=== PATIENT | male | born 1950 | race African-American/Black ===

== ENCOUNTER 2018-07-02 21:30 | Inpatient (IN) | payer MEDICARE ==
[~2018-07-02] VITALS: Ht 172.7 cm; Wt 58.2 kg
--- NOTE | ~2018-07-02 | EC ---
PATIENT:MARCEL HONG DATE OF SERVICE: 07/02/18 SEX: M MEDICAL RECORD: [id number] DATE OF : 52 LOCATION:D.M2 D.212 AGE OF PATIENT: 68 ADMISSION DATE: 07/02/18 REFERRING PHYSICIAN: INTERPRETING PHYSICIAN: ALFREDA MARQUEZ MD ECHOCARDIOGRAM REPORT ECHO CHARGES 5 ECHO LIMITED Date: 07/03 CLINICAL DIAGNOSIS: CHEST PAIN ECHOCARDIOGRAPHIC MEASUREMENTS (adult normal given) AC root (d.<3.7cm) 5.0 cm LV Septum d (<1.2 cm> 1.5 cm Valve Excursion 2.1 cm LV Septum (systole) 1.9 cm Left Atria (s.<4.0cm> 3.4 cm LVPW d(<1.2cm) 1.7 cm RV (d.<2.3cm) 3.7 cm LVPW (sytole) 1.9 cm LV diastole(<5.6CM) 3.7 cm MV E-F(>70mm/sec) cm LV systole 2.3 cm LVOT Diameter cm MV exc.(>10mm) cm Est.ejection fraction (50-75%) % DOPPLER: LVIT cm/sec A cm/sec E cm/sec LA cm/sec RVSP 25 mmHg LVOT cm/sec AOP1/2T m/s Asc. Ao cm/sec RVOT 114 cm/sec RA cm/sec PA 128 cm/sec AV Gradient Peak mmHg AV Mean mmHg AV Area cm MV Gradient Peak mmHg MV Mean mmHg MV Area cm COMMENTS: Biblical Studies Professor: Berta STRAUSS Options Trader: 3 Dr. Zimmerman TAPE# PACS Pericardial Effusion Y DATE OF SERVICE: Adequate 2D echo, color flow, spectral Doppler, M-mode LVH present. LV internal dimensions are normal. Wall motion is normal. EF is greater than or equal to 55%. Aortic valve sclerosis without stenosis by Doppler interrogation. Left atrium is normal at 3.4 cm. Mitral valve shows no prolapse. Mild MR. Right sided chambers are normal. Trace TR. TRANSINT:[id number] Voice Confirmation ID: [id number] DOCUMENT ID: [id number] ECHOCARDIOGRAM REPORT [id number] MARCEL HONG ALFREDA MARQUEZ MD at 1117 CC: [id number] DICTATION DATE: 07/03/18 1642 PERSONNEL QUALITY ASSURANCE AUDITOR: 07/04/18 0109 ADM IN [facility] [address] [facility] [place] [address]
--- NOTE | ~2018-07-02 | OP ---
PATIENT NAME: MARCEL HONG MEDICAL RECORD: [id number] :52 LOCATION:D.M2 D.2120 ADMISSION DATE:07/02/18 SURGEON: ALFREDA MARQUEZ MD DATE OF OPERATION: 07/05/2018 PROCEDURE: Left heart catheterization, selective coronary angiography, post-intervention to the LAD, right radial artery approach. CATHETERS: A radial sheath. Pickens catheter. We proceed with a JAZZ SINGER stenting to the LAD. FINDINGS: Left ventriculography in 30-degree BAUMAN view shows mild anterior anteroapical hypokinesis, LV function preserved at 50%. CORONARY ANATOMY: LEFT MAIN: Left main is free of disease. LAD: Has a fairly discrete 80% stenosis at the takeoff of the first septal. CIRCUMFLEX: Small vessel, free of disease. RIGHT CORONARY ARTERY: Luminal irregularities, otherwise free of disease. IMPRESSION: Infarct related artery appears to LAD. PLAN: Intervention momentarily. DESCRIPTION OF PROCEDURE: Using the indwelling radial sheath, EBU 3.5 guide catheter provided excellent guide catheter support followed by a 300 cm [place] XT wire was placed across the tightly occluded LAD to this portion of the vessel. Stent deployed was a 3.5 x 15 mm Integrity nondrug-eluting stent up to 14 atmospheres for 45 seconds. Final angiography shows excellent resolution of 80% stenosis, no significant residual. ANT flow was 3 throughout the procedure. Integrilin was used during the case. Sheath closed with TR band. TRANSINT:[id number] Voice Confirmation ID: [id number] DOCUMENT ID: [id number] ALFREDA MARQUEZ MD at 1254 CC: [id number] DICTATION DATE: 07/05/18 1007 DISPATCHER REFINERY: 07/05/18 1155 DIS IN 07/06/18 [facility] [address] [place] [address]
--- NOTE | ~2018-07-02 | CN ---
PATIENT NAME:MARCEL HONG MEDICAL RECORD: [id number] : 52 LOCATION:D. D.2120 ADMIT DATE: 07/02/18 ACCOUNT: [id number] CONSULTING PHYSICIAN: ALFREDA MARQUEZ MD REFERRING PHYSICIAN: SOLO TSANG MD DATE OF CONSULTATION: 07/03/2018 HISTORY OF PRESENT ILLNESS: A 68-year-old gentleman with no known history of coronary artery disease, has a history of obstructive pulmonary disease, on home O2, presented to outside hospital with increasing dyspnea, found to have a right lower lobe pneumonia. Also reports intermittent wheezing. Has been having intermittent chest pain with 2 components, one pleurtic, one more anginal. Cardiac enzymes consistent with NSTEMI. Given underlying lung disease, difficult to tell if this is type 1 or 2. We are asked to see him concerning his cardiovascular status. PAST MEDICAL HISTORY: Includes, 1. History of hyperlipidemia. 2. Seizure disorder. 3. Cerebrovascular disease status post CVA. 4. Obstructive pulmonary disease. ALLERGIES: None known. MEDICATIONS: Include Lipitor 80 mg p.o. daily, Plavix 75 every day, Keppra 500 b.i.d., Remeron 30 mg at bedtime, aspirin 81 every day. SOCIAL HISTORY: Lives in the [place] area. Smokes a pack a day, drinks around 12-pack. No set exercise program. REVIEW OF SYSTEMS: The patient reports easy bruising but reports no swollen glands. The patient reports no fever, no night sweats, no significant weight gain, no significant weight loss. No significant exercise tolerance. The patient reports no dry eyes, no irritation, no vision change. Patient reports no difficulty hearing and no ear pain. Patient reports no frequent nose bleeds or nose and sinus problems. Patient reports on arm pain on exertion. No shortness of breath while lying down. No history of heart murmur. Patient reports no cough, no wheezing or coughing up blood. Patient reports no abdominal pain, no vomiting. Normal appetite. No diarrhea and not vomiting blood. No nausea and no constipation. Patient reports no incontinence. No difficulty urinating. No hematuria. No increased frequency. Patient reports no muscle aches. No weakness, no arthralgias, no back pain. No swelling of the extremities. Patient reports no abnormal mole, no jaundice, no rashes. Reports no loss of consciousness. No weakness and no numbness. No seizures, dizziness, or headaches. The patient reports no depression, no sleep disturbance, feeling safe in a relationship and no alcohol abuse. Patient reports on fatigue. Reports no runny nose or sinus pressure. No itching, no hives, and no frequent sneezing. PHYSICAL EXAMINATION: GENERAL: Pleasant gentleman in no acute distress. VITAL SIGNS: Blood pressure 133/75, pulse 78 and regular. HEENT: Normocephalic, atraumatic. NECK: No JVD or bruit. HEART: Regular. CONSULT REPORT [id number] MARCEL HONG LUNGS: Lung johns clear. ABDOMEN: Soft, nontender. EXTREMITIES: Pulses 2+. No edema. DIAGNOSTIC DATA: ECG shows nonspecific ST-T changes. IMPRESSION: Obstructive pulmonary disease, improving pneumonitis. Multiple risk factors for coronary disease. This may be demand ischemia, but given underlying risk factors and history, we will plan for diagnostic angiography in near future. Further recommendations based on above. TRANSINT:[id number] Voice Confirmation ID: [id number] DOCUMENT ID: [id number] ALFREDA MARQUEZ MD at 1117 CC: [id number] DICTATION DATE: 07/03/18 1342 CUSTOM GRINDER: 07/03/18 1433 ADM IN [facility] [place] [id number] [place] [address]
--- NOTE | ~2018-07-02 | HEMODYNAMI ---
PATIENT:MARCEL HONG MEDICAL RECORD: [id number] : 52 [facility]ATION[id number] ADMISSION DATE: 07/02/18 Generatedon:07/05/201810:06 Patient name: MARCEL HONG Patient #: [id number] SSN: : 1950 Date of study: 07/05/2018 Page: Of Hemodynamic Procedure Report Patient Data Patient Demographics Procedure consent was obtained First Name: MARCEL Gender: Male Last Name: GELY : 1950 Patient #: [id number] Age: 68 year(s) Race: Black Additional ID: [id number] Contact details [address]: [address] [place] [address] State: [place] City: [place] Zip code: [address] Admission Admission Data Admission Date: 07/02/2018 Admission Time: 21:30 Room #: 2120 Height (in.): 68 BSA: 1.69 (m2) Height (cm.): 172.72 BMI: 19.44 (kg/m2) Weight (lbs.): 127.87 Weight (kg.): 58 Lab Results Lab Result Date: 07/05/2018 Lab Result Time: 0:00 Biochemistry Name Units Result Min Max BUN mg/dl 8 --(*---)-- 7 18 Creatinine mg/dl 0.7 --(*---)-- 0.6 1.3 CBC Name Units Result Min Max Hemoglobin g/dl 10.6 *-(----)-- 13.5 17.5 Procedure Procedure Types Cath Procedure Diagnostic Procedure LHC LHC w/Coronaries Sedation Charges Moderate Sedation up to 15 minutes PCI Procedure Coronary Stent Coronary Stent Initial Procedure Description Procedure Date Procedure Date: 07/05/2018 Procedure Start Time: 9:40 Procedure End Time: 10:01 Procedure Staff Name Function Janusz Liz MD Performing Physician Shanti Kumar RT Monitor Shanti Kumar RT Scrub Jake Carlton RN Nurse Procedure Data Cath Procedure Fluoroscopy Diagnostic fluoroscopy Total fluoroscopy Time: 5.9 time: 5.9 min min Diagnostic fluoroscopy Total fluoroscopy dose: dose: 133.11 mGy 133.11 mGy Contrast Material Contrast Material Type Amount (ml) Isovue 300 112 Entry Location Entry Primary Successful Side Size Upsize Upsize Entry Closure Mae ccessful Closure Location (Fr) 1 (Fr) 2 (Fr) Remarks Device Remarks Radial Right 6 Fr Mechanical artery Short Compression Estimated blood loss: 5 ml Diagnostic catheters Device Type Used For End Catheter Placement DIAGNOSTIC Kyburz 110cm 5 Multi-vessel Fr catheter ([id number]) Angiography Procedure Complications No complications Procedure Medications Medication Administration Route Dosage Oxygen etCO2 Nasal cannula 2 l/min Heparin Flush Bag added to field 2 bags (1000units/500ml NS) Radial Cocktail added to field 1 syringe (Verapomil 2mg/Nitro 400mcg/Heparin 1500units) Fentanyl I.V. 50 mcg Versed I.V. 1 mg Fentanyl I.V. 50 mcg Versed I.V. 1 mg Radial Cocktail I.A. 1 syringe (Verapomil 2mg/Nitro 400mcg/Heparin 1500units) Heparin Bolus I.V. 4000 units Integrilin (Bolus I.V. 5 ml 2mg/ml) Integrilin (Bolus wasted 5 ml 2mg/ml) Hemodynamics Rest BSA: 1.69 (m2) HGB: 10.6 (g/dl) O2 Consumption: Estimated: 202.71 (ml/min) O2 Co nsumption indexed: Estimated:119.95 (ml/min/m) Heart Rate: 80 (bpm) Pressure Samples Time Site Value (mmHg) Purpose Heart Use Rate(bpm) 9:50 LV 125/2,9 Snapshot 85 Gradients Valve Time Site Site Mean SEP/DFP Peak To Heart Use 1 2 (mmHg) (sec/min) Peak Rate (mmHg) (bpm) Aortic 9:50 LV AO 102 Snapshots Pre Cath Intra NCS Post Cath Vital Signs Time Heart Resp SPO2 etCO2 NIBP (mmHg) Rhythm Pain Sedation Rate (ipm) (%) (mmHg) Status Level (bpm) 9:21:39 79 16 96 0 145/82(111) NSR 0 (11) 10(A) , No pain 9:25:51 79 17 93 0 132/82(109) NSR 0 (11) 10(A) , No pain 9:30:01 79 16 98 52 123/73(93) NSR 0 (11) 10(A) , No pain 9:34:09 77 16 98 40.7 119/71(102) NSR 0 (11) 10(A) , No pain 9:38:17 76 16 98 36.9 122/68(102) NSR 0 (11) 10(A) , No pain 9:42:25 78 17 98 0 112/66(87) NSR 0 (11) 10(A) , No pain 9:46:30 81 16 97 50.5 103/61(82) NSR 0 (11) 10(A) , No pain 9:50:38 77 16 97 27.9 120/50(101) NSR 0 (11) 10(A) , No pain 9:54:50 75 16 97 15 99/52(79) NSR 0 (11) 10(A) , No pain 9:58:56 77 17 98 40.7 101/54(81) NSR 0 (11) 10(A) , No pain 10:05:56 52 No Cuff NSR 0 (11) 10(A) , No pain Medications Time Medication Route Dose Verified Delivered Reason Not es Effectiveness by by 9:20:57 Oxygen etCO2 2 l/min Janusz Joseph Per physician Nasal [facility] Akshat Carlton RN cannula 9:21:06 Heparin Flush added 2 bags Janusz Joseph used for Bag to [facility] Akshat Carlton kettle chipper (1000units/500ml field DAVIDSON NS) 9:25:33 Radial Cocktail added 1 Janusz Joseph used for (Verapomil to syringe [facility] Akshat Carlton kettle chipper 2mg/Nitro field DAVIDSON 400mcg/Heparin 1500units) 9:30:00 Fentanyl I.V. 50 mcg Janusz Joseph for sedation [facility] Akshat Carlton RN, MD 9:30:06 Versed I.V. 1 mg Janusz Joseph for sedation [facility] Akshat Carlton RN, MD 9:39:55 Fentanyl I.V. 50 mcg Janusz Joseph for sedation [facility] Akshat Carlton RN, MD 9:40:00 Versed I.V. 1 mg Janusz Joseph for sedation [facility] Akshat Carlton RN, MD 9:44:48 Radial Cocktail I.A. 1 Janusz Boudreaux for (Verapomil syringe Shalonda [facility] Oden vasodilation 2mg/Omari DAVIDSON MD 400mcg/Heparin 1500units) 9:54:00 Heparin Bolus I.V. 4000 Janusz Joseph for units [facility] Akshat Carlton RN anticoagulation 9:54:10 Integrilin I.V. 5 ml Janusz Joseph Per physician (Bolus 2mg/ml) [facility] Akshat Carlton RN, MD 10:04:15 Integrilin wasted 5 ml Janusz Joseph Per physician (Bolus 2mg/ml) [facility] Akshat Carlton RN, MD Procedure Log Time Note 9:00:45 Jake Carlton RN sent for patient. Start room use. 9:02:47 Lab Result : BUN 8 mg/dl 9::47 Lab Result : Creatinine 0.7 mg/dl 9::47 Lab Result : Hemoglobin 10.6 g/dl 9:03:05 Patient Weight : 127.87 lbs 9:03:29 Patient Height : 68 inches 9:03:49 Diagnostic Cath Status : Urgent 9:20:31 Vital chart was started 9:20:52 Time tracking: Regular hours (M-F 7:00 - 5:00) 9:20:57 Oxygen 2 l/min etCO2 Nasal cannula was administered by Jake Carlton RN; Per physician; 9:20:57 Plan of Care:Hemodynamics will remain stable., Cardiac rhythm will remain stable., Comfort level will be maintained., Respiratory function will remain adequate., Patient/ family verbilizes understanding of procedure., Procedure tolerated without complication., Recovers from procedure without complications.. 9:21:06 Heparin Flush Bag (1000units/500ml NS) 2 bags added to field was administered by Jake Carlton RN; used for procedure; 9:21:11 Patient received from Med II to CCL 3 Alert and oriented. Tansferred to table in Supine position. 9:21:12 Warm blankets applied, and enda hugger turned on for patient comfort. 9:21:13 Correct patient and procedure confirmed by team. 9:21:14 Signed procedure consent form obtained from patient. 9:21:15 ECG and BP/O2 sat monitors applied to patient. 9:21:19 Baseline sample Acquired. 9:21:22 Rhythm: sinus rhythm 9:21:24 Full Disclosure recording started 9:21:29 H&P Date Dictated: 07/05/2018 New H&P dictated by physician.. 9:21:30 Pre-procedure instructions explained to patient. 9:21:31 Pre-op teaching completed and patient verbalized understanding. 9:21:33 Family in waiting room. 9:21:34 Patient NPO since Midnight. 9:21:38 Is the patient allergic to Iodine/contrast media? No. 9:21:39 Was the patient premedicated? No 9:21:41 Is patient on blood thinner?Yes 9:21:42 ACC The patient was administered the following blood thiners within the last 24 hours: ACCPlavix 9:21:45 Patient diabetic? No. 9:21:48 Previous problem with sedation/anesthesia? No ? 9:21:51 Snore? Yes 9:21:52 Sleep apnea? No 9:21:53 Deviated septum? No 9:21:53 Opens mouth fully? Yes 9:21:54 Sticks out tongue? Yes 9:21:58 Airway obstruction? Yes copd 9:22:10 Dentures? Yes loose teeth 9:22:14 Pre procedure: right dorsailis pedis pulse 2+ Normal; easily identifiable; not easily obliterated 9:22:17 Pre procedure: left dorsailis pedis pulse 2+ Normal; easily identifiable; not easily obliterated 9:22:19 Patient pain scale 0/10 ?. 9:22:26 IV patent on arrival in left forearm with 0.9% NaCl at [facility]. 9:22:28 Lab results completed and on chart. 9:22:33 Right Radial & Right Groin area was prepped with chlora-prep and draped in sterile fashion 9:22:34 Alarms reviewed by R. N. 9:22:35 Sharps counted by scrub and verified by R.N. 9::36 Sharps counted by scrub and verified by R.N. 9:25:33 Radial Cocktail (Verapomil 2mg/Nitro 400mcg/Heparin 1500units) 1 syringe added to field was administered by Jake Carlton RN; used for procedure; 9:28:06 Physician arrived 9:28:06 --------ALL STOP TIME OUT------ 9:28:07 Final Timeout: patient, procedure, and site verified with staff and physician. All members of the team are in agreement. 9:28:08 Right Radial & Right Groin site verified by team. 9:28:11 Physical assessment completed. ASA score P 2 - A patient with mild systemic disease as per Janusz Liz MD. 9:28:20 Sedation plan: IV Moderate Sedation Medication:Versed, Fentanyl 9:28:23 Use device set Radial Dx or PCI 9:28:25 ACIST Syringe (06414) opened to sterile field. 9:28:25 Medline Cath Pack ([id number]) opened to sterile field. 9:28:25 Bag Decanter (2002S) opened to sterile field. 9:28:26 DIAGNOSTIC WIRE .035 260cm J wire (288208) opened to sterile field. 9:28:26 ACIST Hand Control (05328) opened to sterile field. 9:28:27 ACIST Manifold (05392) opened to sterile field. 9:28:27 Tegaderm 4 x 4 (1626W) opened to sterile field. 9:28:28 MBrace Wrist Support ([id number]) opened to sterile field. 9:28:29 SHEATH 6Fr Prelude Radial ([id number]) opened to sterile field. 9:30:00 Fentanyl 50 mcg I.V. was administered by Jake Carlton RN; for sedation; 9:30:06 Versed 1 mg I.V. was administered by Jake Carlton RN; for sedation; 9:32:16 Zero performed for pressure channel P1 9:39:55 Fentanyl 50 mcg I.V. was administered by Jake Carlton RN; for sedation; 9:40:00 Versed 1 mg I.V. was administered by Jake Carlton RN; for sedation; 9:40:05 Procedure started. 9:40:08 Local anesthetic to right radial artery with Lidocaine 2% by Janusz Liz MD.INITIAL ACCESS ONLY 9:40:16 A 6 Fr Short sheath was inserted into the Right Radial artery 9:43:27 A DIAGNOSTIC Kyburz 110cm 5 Fr catheter ([id number]) was advanced over the wire and used for Multi-vessel Angiography. 9:43:35 Baseline sample Acquired. 9:44:48 Radial Cocktail (Verapomil 2mg/Nitro 400mcg/Heparin 1500units) 1 syringe I.A. was administered by Janusz Liz MD; for vasodilation; 9:47:45 RCA angiography performed. 9:47:49 Injector settings: Ml/sec: 3, Volume: 6, 9:49:12 LCA angiography performed. 9:49:15 Injector settings: Ml/sec: 3, Volume: 6, 9:50:33 LV hemodynamics recorded. 9:50:34 LV gram done using BAUMAN 9:50:37 Injector settings: Ml/sec: 5, Volume: 15, 9:50:52 EF : 55 % 9:51:05 Catheter removed. 9:51:15 Proceeding to intervention. 9:51:37 WHISPER 300cm guide wire ([id number]) opened to sterile field. 9:52:03 INFLATOR Merit BasixCompak (IX1538) opened to sterile field. 9:52:12 6 Fr ebu 3.5 guide catheter was inserted over the wire 9:53:26 whisper wire advanced. 9:54:00 Heparin Bolus 4000 units I.V. was administered by Jake Carlton RN; for anticoagulation; 9:54:10 Integrilin (Bolus 2mg/ml) 5 ml I.V. was administered by Jake Carlton RN; Per physician; 9:56:08 Wire advanced across lesion. 9:58:20 Place stent Inflation Number: 1 A INTEGRITY OTW 3.5 X 15 stent ([id number]) was prepped and advanced across the Mid LAD. The stent was deployed at 14 SHERON for 0:30 (min:sec). 9:59:10 TR BAND Standard ([id number]) opened to sterile field. 9:59:16 Stent catheter was removed intact over wire. 9:59:18 Wire removed. 9:59:18 Guide catheter removed. 9:59:27 Sheath removed intact; hemostasis achieved with Mechanical Compression to the Right Radial artery. 9:59:29 Procedure ended.(Physican Out) 10:00:04 Fluoroscopy time 05.90 minutes. 10:00:22 Fluoroscopy dose: 133.11 mGy 10:00:22 Flurop Dose total: 133.11 10:00:27 Contrast amount:Isovue 300 112ml. 10:00:30 Sharps counted by scrub and verified by R.N. 10:00:32 TR band inflated with 10cc of air. 10:00:33 Insertion/operative site no bleeding no hematoma. 10:00:37 Post right radial artery:stable 10:00:39 Post Procedure Pulses reassessed and unchanged 10:00:42 Post procedure rhythm: unchanged. 10:00:45 Estimated blood loss: 5 ml 10:00:46 Post procedure instruction explained to patient.Patient verbalizes understanding. 10:00:46 Patient needs reinforcement of post procedure teaching. 10:01:04 Procedure type changed to Cath procedure, Diagnostic procedure, LHC, LHC w/Coronaries, Sedation Charges, Moderate Sedation up to 15 minutes, PCI procedure, Coronary Stent, Coronary Stent Initial 10:01:06 Procedure and supply charges have been captured, reviewed, submitted and are correct. 10:01:10 Procedure Complication : No complications 10:01:13 Vital chart was stopped 10:01:13 See physician's report for complete and final results. 10:01:17 Report given to Med II. 10:01:19 Patient transfered to Med II with Stretcher. 10:01:21 Procedure ended. 10:01:21 Full Disclosure recording stopped 10:01:31 ACC-PCI Only Patient was given prescriptions, or instructed by Janusz Liz MD to start/continue the following medications upon discharge: Plavix 10:01:32 End room use (Document Last) 10:04:15 Integrilin (Bolus 2mg/ml) 5 ml wasted was administered by Jake Carlton RN; Per physician; Intervention Summary Intervention Notes Time ActionType Lesion and Equipment Action# Pressure Duration Attributes Used 9:58:20 Place stent Mid LAD INTEGRITY 1 14 00:30 OTW 3.5 X 15 stent ([id number]) Device Usage Item Name Manufacture Quantity Catalog Number Hospital Part Current M inimal Lot# / Charge Number Stock Stock Serial# Code ACIST Syringe Acist 1 39367 991523 549802 [id number] 2 0 (55958) Medical Systems Inc Medline Cath Cardinal 1 [id number] 440985 19489 048571 5 Pack Health ([id number]) Bag Decanter Microtek 1 297039 41638 769774 5 () Medical Inc. DIAGNOSTIC WIRE [facility] 1 838733 186011 578341 622846 3 0 .035 260cm J wire (146261) ACIST Hand Acist 1 30383 674529 316348 021629 5 Control (93634) Medical Systems Inc ACIST Manifold Acist 1 89358 464549 362791 677310 5 (91295) Medical Systems Inc Tegaderm 4 x 4 3M 1 1626W 666957 130293 111202 5 (1626W) MBrace Wrist Advanced 1 140-0250-00 840189 84500 593984 5 Support Vascular ([id number]) Dynamics SHEATH 6Fr Merit 1 [id number] 178650 064525 537232 5 Prelude Radial Medical ([id number]) DIAGNOSTIC Terumo 1 405013 243774 845481 077945 5 Kyburz 110cm 5 Fr catheter (553901) WHISPER 300cm Rhodes 1 [id number] 579671 198807 333235 5 guide wire Vascular ([id number]) INFLATOR Merit Merit 1 [id number] 829796 871015 139640 1 5 BasixZevez CorporationndTier 1 Performance Medical ([id number]) INTEGRITY OTW Medtronic 1 [id number] 986519 823931 8 [id number] 3.5 X 15 stent ([id number]) TR BAND Terumo 1 [id number] 431753 679192 624780 4 0 Standard ([id number]) Signature Audit [place] Stage Time Signature Unsigned Intra-Procedure 07/05/2018 Shanti Kumar 10:06:31 AM RT(R) Signatures Monitor : Shanti Kumar RT Signature : Date : Time : [place] [id number] [facility] [place] [address]
[2018-07-02] MEDS ORDERED: ASPIRIN325 MG PO (22:47)
[2018-07-02] MEDS ORDERED: LIPITOR80 MG PO (22:49)
[2018-07-02] MEDS ORDERED: REMERON30 MG PO (22:50)
[2018-07-02] MEDS ORDERED: KEPPRA500 MG PO (22:50)
[2018-07-02] MEDS ORDERED: PLAVIX75 MG PO (22:50)
[2018-07-02] MEDS ORDERED: VITAMIN D31000 UNIT PO (22:51)
[2018-07-02 23:20] VITALS: BP 99/60; BMI 19.5
[2018-07-03 00:45] LABS: CKMB 0.6 U/L (0.0-3.6); CREATINE KINASE 29 UL (21-232)
[2018-07-03 00:47] LABS: TROPONIN-I 0.084 ng/mL (0.000-0.060)
[2018-07-03 04:00] VITALS: BP 133/75
[2018-07-03 05:36] LABS: BASOPHILS 0.1 % (0-2); EOSINOPHILS 0.1 % (0-7); HEMOGLOBIN 10.7 g/dL (13.5-17.5); IMMATURE GRANULOCYTES 0.1 % (0-5); LYMPHOCYTES 21.2 % (15-50); MCH 28.7 pg (26.0-34.0); MCHC 32.4 g/dL (31.0-37.0); MCV 88.5 fL (80.0-100.0); MEAN PLATELET VOLUME 9.9 fL (7.4-10.4); MONOCYTES 18.3 % (2-11); NEUTROPHILS 60.2 % (40-80); PLATELET COUNT 239 10x3/uL (130-400); RBC 3.73 10x6/uL (4.20-6.10); RDW 15.5 % (11.5-14.5); WBC 7.2 10x3/uL (4.8-10.8)
[2018-07-03 06:37] LABS: ALKALINE PHOSPHATASE 75 U/L (46-116); ALT (SGPT) 12 U/L (10-68); CALC OSMOLALITY 276 mosm/kg (275-300); CALCIUM 8.9 mg/dL (8.5-10.1); CARBON DIOXIDE 36.8 mmol/L (21.0-32.0); CHLORIDE - SERUM 100 mmol/L (98-107); CKMB 0.7 U/L (0.0-3.6); CREATINE KINASE 25 UL (21-232); CREATININE - SERUM 0.7 mg/dL (0.6-1.3); POTASSIUM - SERUM 4.5 mmol/L (3.5-5.1); PRO BNP 3663 pg/mL (0-125); PROTEIN - SERUM 7.6 g/dL (6.4-8.2); SODIUM 139 mmol/L (136-145); TROPONIN-I 0.056 ng/mL (0.000-0.060); UREA NITROGEN 16 mg/dL (7-18); eGFR NON AFRICAN AMERICAN > 90 mL/min (90-120)
[2018-07-03 06:40] LABS: GLUCOSE 63 mg/dL (74-106)
[2018-07-03 07:44] VITALS: BP 137/78
[2018-07-03 11:21] LABS: CKMB 0.8 U/L (0.0-3.6); CREATINE KINASE 34 UL (21-232); TROPONIN-I 0.028 ng/mL (0.000-0.060)
[2018-07-03 11:23] VITALS: BP 118/71
[2018-07-03 13:02] VITALS: Ht 172.7 cm; Wt 58.2 kg
[2018-07-03 14:38] LABS: % SATURATION 40 % (15-55); IRON 68 ug/dl (35-150); TOTAL IRON BIND CAPACITY 168 ug/dl (260-445); UNSAT IRON BIND CAPACITY 100 ug/dl (150-375)
[2018-07-03 14:56] VITALS: BP 143/81
[2018-07-03 15:50] LABS: APPEARANCE CLEAR (CLEAR); BILIRUBIN NEGATIVE (NEGATIVE); COLOR YELLOW (YELLOW); GLUCOSE NEGATIVE (NEGATIVE); KETONE SMALL mg/dL (NEGATIVE); NITRITE NEGATIVE (NEGATIVE); PROTEIN NEGATIVE (NEGATIVE); SPECIFIC GRAVITY 1.015 (1.005-1.020); UROBILINOGEN NORMAL (NORMAL)
[2018-07-03 15:52] LABS: RED CELLS - URINE 0-5 /hpf (0-5); WHITE CELLS - URINE 0-5 /hpf (0-5)
[2018-07-03 15:53] LABS: BACTERIA FEW /hpf (NONE SEEN)
[2018-07-03 20:30] VITALS: BP 113/71
[2018-07-04 05:52] LABS: BASOPHILS 0.2 % (0-2); EOSINOPHILS 0.5 % (0-7); HEMATOCRIT 34.1 % (42.0-54.0); IMMATURE GRANULOCYTES 0.5 % (0-5); LYMPHOCYTES 24.6 % (15-50); MCH 28.5 pg (26.0-34.0); MCHC 32.3 g/dL (31.0-37.0); MCV 88.3 fL (80.0-100.0); MEAN PLATELET VOLUME 9.8 fL (7.4-10.4); MONOCYTES 16.1 % (2-11); NEUTROPHILS 58.1 % (40-80); PLATELET COUNT 245 10x3/uL (130-400); RBC 3.86 10x6/uL (4.20-6.10); RDW 15.1 % (11.5-14.5)
[2018-07-04 06:07] LABS: CALCIUM 8.8 mg/dL (8.5-10.1); CARBON DIOXIDE 34.9 mmol/L (21.0-32.0); CHLORIDE - SERUM 100 mmol/L (98-107); CREATININE - SERUM 0.7 mg/dL (0.6-1.3); SODIUM 138 mmol/L (136-145); eGFR NON AFRICAN AMERICAN > 90 mL/min (90-120)
[2018-07-04 06:09] LABS: CALC OSMOLALITY 272 mosm/kg (275-300); GLUCOSE 70 mg/dL (74-106); POTASSIUM - SERUM 3.8 mmol/L (3.5-5.1); UREA NITROGEN 10 mg/dL (7-18)
[2018-07-04 07:55] VITALS: BP 104/64
[2018-07-04 11:33] VITALS: BP 120/64
[2018-07-04 12:02] VITALS: BP 120/64
[2018-07-04 15:30] VITALS: BP 106/64
[2018-07-04 21:07] VITALS: BP 124/52
[2018-07-05] VITALS (9 sets, daily range): BP systolic 93–126; BP diastolic 49–72
[2018-07-05 06:22] LABS: BASOPHILS 0 % (0-2); EOSINOPHILS 0.5 % (0-7); HEMATOCRIT 32.4 % (42.0-54.0); HEMOGLOBIN 10.6 g/dL (13.5-17.5); LYMPHOCYTES 21.9 % (15-50); MCH 28.8 pg (26.0-34.0); MCHC 32.7 g/dL (31.0-37.0); MEAN PLATELET VOLUME 9.9 fL (7.4-10.4); MONOCYTES 15.5 % (2-11); NEUTROPHILS 62.1 % (40-80); PLATELET COUNT 267 10x3/uL (130-400); RBC 3.68 10x6/uL (4.20-6.10); RDW 15.1 % (11.5-14.5); WBC 5.8 10x3/uL (4.8-10.8)
[2018-07-05 06:38] LABS: CALC OSMOLALITY 279 mosm/kg (275-300); CALCIUM 8.9 mg/dL (8.5-10.1); CARBON DIOXIDE 38.7 mmol/L (21.0-32.0); CHLORIDE - SERUM 100 mmol/L (98-107); CREATININE - SERUM 0.7 mg/dL (0.6-1.3); GLUCOSE 74 mg/dL (74-106); SODIUM 142 mmol/L (136-145); UREA NITROGEN 8 mg/dL (7-18); eGFR NON AFRICAN AMERICAN > 90 mL/min (90-120)
[2018-07-05 06:40] LABS: POTASSIUM - SERUM 3.2 mmol/L (3.5-5.1)
[2018-07-06 04:00] VITALS: BP 114/69
[2018-07-06 05:20] LABS: BASOPHILS 0 % (0-2); EOSINOPHILS 0.9 % (0-7); HEMATOCRIT 30.2 % (42.0-54.0); HEMOGLOBIN 9.8 g/dL (13.5-17.5); LYMPHOCYTES 23.9 % (15-50); MCH 28.3 pg (26.0-34.0); MCHC 32.5 g/dL (31.0-37.0); MCV 87.3 fL (80.0-100.0); MEAN PLATELET VOLUME 9.7 fL (7.4-10.4); MONOCYTES 18.5 % (2-11); NEUTROPHILS 56.7 % (40-80); PLATELET COUNT 262 10x3/uL (130-400); RBC 3.46 10x6/uL (4.20-6.10); RDW 15.2 % (11.5-14.5); WBC 4.7 10x3/uL (4.8-10.8)
[2018-07-06 05:47] LABS: CALC OSMOLALITY 282 mosm/kg (275-300); CALCIUM 8.3 mg/dL (8.5-10.1); CARBON DIOXIDE 37.1 mmol/L (21.0-32.0); CHLORIDE - SERUM 104 mmol/L (98-107); GLUCOSE 71 mg/dL (74-106); SODIUM 144 mmol/L (136-145); UREA NITROGEN 6 mg/dL (7-18)
[2018-07-06 05:50] LABS: CREATININE - SERUM 0.5 mg/dL (0.6-1.3); POTASSIUM - SERUM 3.9 mmol/L (3.5-5.1); eGFR NON AFRICAN AMERICAN > 90 mL/min (90-120)
[2018-07-06 09:17] LABS: FOLATE (FOLIC ACID) - SERUM >20.0 ng/mL (>3.0)
[2018-07-06] MEDS ORDERED: LEVAQUIN750 MG PO (15:51)
[2018-07-06] MEDS ORDERED: FLORAJEN3 CAPS460 MG PO (15:52)
== END 2018-07-06 17:30 | disposition home health service (06) | DRG 248 ==
LOC: D.M2 21:30
PROVIDERS: Internal Medicine Interventional Cardiology; Internal Medicine Nephrology
PROC: B2111ZZ Fluoroscopy of Multiple Coronary Arteries using Low Osmolar Contrast (ICD-10-PCS; 2018-07-05)
PROC: B2151ZZ Fluoroscopy of Left Heart using Low Osmolar Contrast (ICD-10-PCS; 2018-07-05)
PROC: 02703DZ Dilation of Coronary Artery, One Artery with Intraluminal Device, Percutaneous Approach (ICD-10-PCS; principal; 2018-07-05 09:00)
PROC: 4A023N7 Measurement of Cardiac Sampling and Pressure, Left Heart, Percutaneous Approach (ICD-10-PCS; 2018-07-05 09:00)
DX: I21.4 Non-ST elevation (NSTEMI) myocardial infarction (principal); J18.9 Pneumonia, unspecified organism; J96.21 Acute and chronic respiratory failure with hypoxia; J44.1 Chronic obstructive pulmonary disease with (acute) exacerbation; J44.0 Chronic obstructive pulmonary disease with (acute) lower respiratory infection; R64 Cachexia; C34.90 Malignant neoplasm of unspecified part of unspecified bronchus or lung; I25.10 Atherosclerotic heart disease of native coronary artery without angina pectoris; R91.8 Other nonspecific abnormal finding of lung field; I10 Essential (primary) hypertension; F41.8 Other specified anxiety disorders; Z72.0 Tobacco use; I24.8 Other forms of acute ischemic heart disease; Z86.73 Personal history of transient ischemic attack (TIA), and cerebral infarction without residual deficits